=== PATIENT | male | born 1985 | race Caucasian/White ===

== ENCOUNTER 2025-07-25 22:09 | Emergency (ER) | payer MEDICAID, SELFPAY ==
--- OUTSIDE RECORDS SUMMARY | 2025-07-25 22:32 | XMS_ITS | Data Portability ---
Author Organization [facility] Address [address] [place] [address] Assessment Encounter Date Assessment Date Assessment LastModified by Organization Details LastModified Time 07/07/2019 07/07/2019 pt reports all symptoms improved- he feels good on most days. Release to go back to work. Continue meds prn. Follow up should symptoms progress or worsen. Monitor closley for signs of numbness, loss of bowel or bladder control, or Saddle anesthesia. He verbalizes understanding and agrees. [email or web address] Not available 07/07/2019 13:20:58 Plan of Treatment Reminders Order Date Submit Date Provider Last Modified By Organization Details Last Modified Time Details Appointments None recorded. Lab urinalysis , dipstick [address], [address] [place], [address], 2 16:41:29 culture, urine 2021 022 [place] [facility], [address], [facility], [place], [address], 2 18:35:56 rapid flu (A+B) [address], [address] [place], [address], 0 10:19:16 Referral None recorded. Procedures None recorded. Surgeries None recorded. Imaging None recorded. Medication Orders Solu-Medro l (PF) 125 mg/2 mL solution for injection 2023 024 [email or web address] Not available 5 08:11:44 prednisone 20 mg tablet 2023 024 [email or web address] [facility] [place], [address] [place] [address], [address], 5 08:11:41 Solu-Medro l (PF) 125 mg/2 mL solution for injection 2023 024 [email or web address] Not available 5 08:11:44 prednisone 20 mg tablet 2023 024 [email or web address] [facility] [place], [address] [place] [address], [address], 5 08:11:41 Macrobid 100 mg capsule 2021 022 Not available 4 15:40:56 Zithromax Z-Amadou 250 mg tablet 2019 020 [email or web address] [facility] [place], [address] [place] [address], [address], 2 15:27:21 Medrol (Amadou) 4 mg tablets in a dose pack 2019 020 [email or web address] [facility] - [address], [address], 2 15:27:19 Knox 5 mg-325 mg tablet 2018 019 [email or web address] [facility] - [address], [address], 2 15:27:09 Patient TargetsNo targets recorded. Patient Instructions Encounter Date Encounter Id Patient Instructions Last Modified By Organization Details Last Modified Time 07/07/2019 [id number] tailbone injury: care instructions [email or web address] Not available 07/07/2019 13:20:01 back care and preventing injuries: care instructions [email or web address] Not available 07/07/2019 13:20:01 getting back to normal after low back pain: care instructions [email or web address] Not available 07/07/2019 13:20:01 learning about relief for back pain [email or web address] Not available 07/07/2019 13:20:01 09/30/2019 [id number] upper respirator y infection (cold): care instructions Not available 09/30/2019 10:19:16 keep well hydrated, take medication as prescribed, RTC prn Not available 09/30/2019 10:10:56 02/14/2022 [id number] Male Urinary Tract Infection (UTI): Care Instructions Not available 02/14/2022 16:41:29 blood in the urine: care instructions Not available 02/14/2022 16:41:09 keep well hydrated, take medication as prescribed, medications discussed with pt and side effects and adverse effects were discussed, RTC prn Not available 02/14/2022 16:40:31 encouraged pt to RTC in 10 to 14 days to have his urine rechecked Not available 02/14/2022 16:40:51 02/21/2024 [id number] body mass index: care instructions [email or web address] Not available 02/21/2024 15:07:26 learning about healthy weight [email or web address] Not available 02/21/2024 15:07:26 Reason for Referral None Reported. Results Created Date Observation Date Name Description Value Unit Range Abnormal Flag Note LastModifiedBy Organization Detail LastModifiedTime 09/30/1909/30/2019 rapid flu (A+B) Flu negati ve Not Available [facility] [address] [place], [address], 09/30/2019 10:01:44 09/30/1909/30/2019 rapid flu (A+B) Type Both A & B Not Available [facility] [address] [place], [address], 09/30/2019 10:01:44 02/15/20 22 02/14/2022 urina lysis , dipst ick Leukocytes Large Not Available [address] [place], [address], 02/14/2022 15:28:04 02/15/20 22 02/14/2022 urina lysis , dipst ick Nitrite positi ve Not Available [address] [place], [address], 02/14/2022 15:28:04 02/15/20 22 02/14/2022 urina lysis , dipst ick Urobilinogen 4 Not Available [address] [place], [address], 02/14/2022 15:28:04 02/15/20 22 02/14/2022 urina lysis , dipst ick Protein 100 Not Available [address] [place], [address], 02/14/2022 15:28:04 02/15/20 22 02/14/2022 urina lysis , dipst ick pH 6.5 Not Available [address] [place], [address], 02/14/2022 15:28:04 02/15/20 22 02/14/2022 urina lysis , dipst ick Blood Modera te Not Available [address] [place], [address], 02/14/2022 15:28:04 02/15/20 22 02/14/2022 urina lysis , dipst ick Specific Brunswick 1.030 Not Available [address] [place], [address], 02/14/2022 15:28:04 02/15/20 22 02/14/2022 urina lysis , dipst ick Ketone Negati ve Not Available [address] [place], [address], 02/14/2022 15:28:04 02/15/20 22 02/14/2022 urina lysis , dipst ick Bilirubin Negati ve Not Available [address] [place], [address], 02/14/2022 15:28:04 02/15/20 22 02/14/2022 urina lysis , dipst ick Glucose Negati ve Not Available [address] [place], [address], 02/14/2022 15:28:04 02/15/20 22 02/14/2022 urina lysis , dipst ick Appearance Slight ly Cloudy Not Available [address] [place], [address], 02/14/2022 15:28:04 02/15/20 22 02/14/2022 urina lysis , dipst ick Color Dark Yellow Not Available [address] [place], [address], 02/14/2022 15:28:04 02/16/20 22 02/20/2022 URINE CULTU RE, ROUTI NE urine culture, routine Final report abnormal Not Available [facility] ([facility]) [address], [place], [address], 02/20/2022 18:35:56 02/16/20 22 02/20/2022 URINE CULTU RE, ROUTI NE result 1 Escher ichia coli abnormal Cefaz jeanie <=4 ug/mL Cefaz jeanie with an MARTIN <=16 predi cts susce ptibi lity to the oral agent s cefac jeri, cefdi kurtis, cefpo doxim e, cefpr ozil, cefur oxime , cepha lexin , and lorac arbef when used for thera py of uncom plica maximiliano urina ry tract infec tions due to E. coli, Klebs iella pneum oniae , and Prote us mirab ilis. Great er than 100,0 00 colon y formi ng units per mL Not Available [facility] ([facility]) [address] [facility], [place], [address], 02/20/2022 18:35:56 02/16/20 22 02/20/2022 URINE CULTU RE, ROUTI NE antimicrobia l susceptibili ty Commen t S = Susce ptibl e; I = Inter media te; R = Resis tant P = Posit gabriel; N = Negat gabriel MICS are expre ssed in micro grams per mL Antib iotic RSLT# 1 RSLT# 2 RSLT# 3 RSLT# 4 Amoxi cilli n/Cla vulan ic Acid S =4 Ampic illin S =4 Cefep swathi S<=0. 12 Ceftr iaxon e S<=0. 25 Cefur oxime S =4 Cipro floxa derek S<=0. 25 Ertap enem S<=0. 12 Genta micin S<=1 Imipe nem S<=0. 25 Levof loxac in S<=0. 12 Merop enem S<=0. 25 Nitro furan toin S<=16 Piper acill in/Ta zobac alvarez S<=4 Tetra cycli ne S<=1 Tobra mycin S<=1 Trime thopr im/Márquez lfa S<=20 Not Available [facility] ([facility]) [address] [facility], [place], [address], 02/20/2022 18:35:56 Result Notes None recorded. Problems Name Problem SNOMED Code Status Onset Date Resolution Date Notes Provider Name and Address Organization Details Recorded Time Multiple lacerations 285930037 Completed 201606/23/2019 Kristine Núñez RN [address], [place], [address], [facility] 9 15:13:50 Herpes zoster 1991862 Active 2018 Kristine perdue [facility] 9 14:44:12 Traumatic injury 306815720 Active 2018 Kristine Núñez RN [address], [place], [address], [facility] 9 15:13:56 Low back pain 717775341 Active 2018 [facility] Rubio [facility] 9 13:05:22 Problem Notes None recorded. Procedures Surgical History Date Name Laterality Status Provider Name and Address Organization Details Recorded Time 09/30/19 Diastolic B/P 80-89 mm Hg completed [facility] 09/30/2019 09:57:59 09/30/19 Systolic B/P 130-139 mm Hg completed [facility] 09/30/2019 09:57:57 06/08/20 19 Medication Reconcilliation completed Dana Gary [facility] 06/08/2019 14:36:56 06/02/20 19 Medication Reconcilliation completed Kristine Walters [facility] 06/02/2019 14:36:37 Hernia Repair completed Dana Gary [facility] 12/28/2016 15:43:32 Imaging Results None recorded. Procedure Notes None recorded. Medical Equipment None Reported. Allergies No known drug allergies Medications Name Sig Start Date Stop Date Status Note LastModified by Organization Details LastModified Time cyclobenz aprine 10 mg tablet Take 1 tablet 3 times a day by oral route as needed for 30 days. 02/14 completed Not Available Not Available Not Available Zyrtec-D 5 mg-120 mg tablet,ex tended release take 1 tablet by oral route 2 times per day for 7 days 09/13 completed Zyrtec-D 5-120 mg oral tablet extended release 12 hr;Presc ribe Status: Prescrib ed on: 09/06/20 2:31PM;U ser: markesbe ryh;Est. Completi on: 09/13/20 15;Pharm acyVerif ied: 09/06/20 15 2:31PM Not Available Not Available Not Available ibuprofen 800 mg tablet Take 1 tablet 3 times a day by oral route for 15 days. 12/15 completed Not Available Not Available Not Available hydrocodo ne 5 mg-acetam inophen 325 mg tablet Take 1 tablet 3 times a day by oral route as needed. 02/14 completed Not Available Not Available Not Available Keflex 500 mg capsule take 1 capsule (500 mg) by oral route every 12 hours for 10 days 09/16 completed Keflex 500 mg oral capsule; Prescrib e Status: Prescrib ed on: 09/06/20 2:31PM;U ser: char ramos;Est. Completi on: 09/16/19 16;Pharm acyVerif ied: 09/06/20 2:31PM Not Available Not Available Not Available Medrol (Amadou) 4 mg tablets in a dose pack take as directed for 5 days 02/14 completed Not Available Not Available Not Available prednison e 20 mg tablet TAKE 3 TABLETS ORALLY ONCE DAILY FOR 5 DAYS 12/30 completed Not Available Not Available Not Available Zithromax Z-Amadou 250 mg tablet take 2 tablets (500 mg) by oral route once daily for 1 day then 1 tablet (250 mg) by oral route once daily for 4 days 02/14 completed Not Available Not Available Not Available promethaz ine 6.25 mg-codein e 10 mg/5 mL syrup take 5 millilit ers by oral route every 6 hours as needed, not to exceed 30 mL in 24 hours for 7 days 09/06 completed prometha zine-cod eine 6.25-10 mg/5 mL oral syrup;Re corded Status: Recorded on: 01/15/20 14 11:46AM; Disconti nued Status: Disconti nued on: 09/06/20 15 1:35PM;U ser: grayn;Es t. Completi on: 01/22/20 14 Not Available Not Available Not Available acyclovir 800 mg tablet Take 1 tablet 5 times a day by oral route for 10 days. 06/08 completed Not Available Not Available Not Available Tessalon Perles 100 mg capsule take 1 capsule (100 mg) by oral route 3 times per day prn 10/30/ 2014 12/22 /2015 completed Tessalon Perles 100 mg oral capsule; Prescrib e Status: Prescrib ed on: 07/15/20 14 3:13PM;D iscontin ued Status: Disconti nued on: 09/06/20 15 1:35PM;U ser: gored;Es t. Completi on: 07/25/20 14;Indic ation: Cough - (16.6982 00);Phar macyVeri fied: 07/15/20 14 3:13PM Not Available Not Available Not Available methocarb foreign 750 mg tablet Take 1 tablet 3 times a day by oral route as needed for 30 days. 06/23 completed Not Available Not Available Not Available Cipro 500 mg tablet take 1 tablet (500 mg) by oral route 2 times per day for 10 days 09/06 completed Cipro 500 mg oral tablet;P rescribe Status: Prescrib ed on: 07/15/20 14 3:13PM;D iscontin ued Status: Disconti nued on: 09/06/20 15 1:35PM;U ser: gored;Es t. Completi on: 07/25/20 14;Pharm acyVerif ied: 07/15/20 14 3:13PM Not Available Not Available Not Available Ventolin HFA 90 mcg/actua tion aerosol inhaler INHALE 2 PUFFS ORALLY EVERY 6 HOURS NEEDED active Not Available Not Available No t Available cyclobenz aprine 5 mg tablet 12/15 completed Not Available Not Available Not Available nitrofura ntoin monohydra te/macroc rystals 100 mg capsule Take 1 capsule every 12 hours by oral route for 10 days. 12/15 completed Not Available Not Available Not Available Flonase spray bid 09/06 completed flonase; Recorded Status: Recorded on: 09/06/20 15 1:53PM;D iscontin ued Status: Disconti nued on: 09/06/20 15 2:27PM;U ser: markesbe ryh;Est. Completi on: 02/03/20 16;Indic ation: - (-5) Not Available Not Available Not Available Keflex 1 tid 09/06 completed keflex 500 mg;Recor ded Status: Recorded on: 09/06/20 15 1:53PM;D iscontin ued Status: Disconti nued on: 09/06/20 15 2:27PM;U ser: char ramos;Est. Completi on: 09/13/20 15;Indic ation: - (-5) Not Available Not Available Not Available Zyrtec D 1 bid 09/06 completed zyrte d;Record ed Status: Recorded on: 09/06/20 15 1:53PM;D iscontin ued Status: Disconti nued on: 09/06/20 15 2:27PM;U ser: char ramos;Est. Completi on: 09/13/20 15;Indic ation: - (-5) Not Available Not Available Not Available Solu-Medr ol (PF) 125 mg/2 mL solution for injection Take 125 mg by injectio n route. 12/30 completed Not Available Not Available Not Available Flonase Allergy Relief 50 mcg/actua tion nasal spray,bobby pension inhale 1 puff by nasal route 2 times a day for 7 days 09/13 completed Flonase Allergy Relief 50 mcg/actu ation nasal spray,márquez spension ;Prescri be Status: Prescrib ed on: 09/06/20 15 2:31PM;U ser: char ramos;Est. Completi on: 09/13/20 15;Pharm acyVerif ied: 09/06/20 15 2:31PM Not Available Not Available Not Available Vitals Date Recorded Body height Body mass index (BMI) Body weight Body temperature Heart rate Oxygen saturation Oxygen saturation in Arterial blood by Pulse oximetry Respiratory rate Pain severity - 0-10 verbal numeric rating [Score] - Reported Systolic And Diastolic Provider Name and Address Organization Details Last Updated DateTime 0 172.72 cm 42.4 kg/m2 631026. 27 g 98.3 [degF] 68 /min 97 % 97 % 20 /min 0 130/80 mm[Hg] [facility] 0 09:57:25 Date Recorded Body height Body mass index (BMI) Body weight Heart rate Oxygen saturation Oxygen saturation in Arterial blood by Pulse oximetry Respiratory rate Pain severity - 0-10 verbal numeric rating [Score] - Reported Systolic And Diastolic Provider Name and Address Organization Details Last Updated DateTime 4 172.72 cm 43.8 kg/m2 366826. 6 g 88 /min 97 % 97 % 18 /min 4 134/80 mm[Hg] Padminilance [place] - [facility] 4 15:50:56 Date Recorded Body weight Heart rate Oxygen saturation Oxygen saturation in Arterial blood by Pulse oximetry Respiratory rate Systolic And Diastolic Provider Name and Address Organization Details Last Updated DateTime 2 259128. 2 g 83 /min 98 % 98 % 18 /min 140/90 mm[Hg] Kristine Luis [place] - [facility] 2 15:26:50 Date Recorded Body height Body mass index (BMI) Body weight Heart rate Oxygen saturation Oxygen saturation in Arterial blood by Pulse oximetry Respiratory rate Pain severity - 0-10 verbal numeric rating [Score] - Reported Systolic And Diastolic Provider Name and Address Organization Details Last Updated DateTime 4 172.72 cm 43.8 kg/m2 941396. 6 g 72 /min 97 % 97 % 18 /min 0 124/78 mm[Hg] Padmini [place] - [facility] 4 14:57:41 Date Recorded Body height Body mass index (BMI) Body weight Heart rate Oxygen saturation Oxygen saturation in Arterial blood by Pulse oximetry Respiratory rate Systolic And Diastolic Provider Name and Address Organization Details Last Updated DateTime 9 172.72 cm 41.2 kg/m2 759671. 53 g 66 /min 95 % 95 % 18 /min 136/88 mm[Hg] Kristine Walters [place] - [facility] 9 13:08:33 Social History Question Answer Notes LastModified by Organizat ion Details LastModified Time Tobacco Smoking Status Never Smoker Dana perdue [place] - [facility] 12/28/2016 15:43:40 Do You Have An Advance Directive? No Information not available 12/16/2023 Are You Blind Or Do You Have Difficulty Seeing? No [email or web address] Information not available 09/30/2019 What Is Your Level Of Caffeine Consumption? Occasional [email or web address] Information not available 09/30/2019 How Much Tobacco Do You Chew? None [email or web address] Information not available 09/30/2019 Are You Deaf Or Do You Have Serious Difficulty Hearing? No [email or web address] Information not available 09/30/2019 What Type Of Diet Are You Following? REGULAR Information not available 09/30/2019 Which Illicit Or Recreational Drugs Have You Used? None [email or web address] Information not available 09/30/2019 How Many Days Of Moderate To Strenuous Exercise, Like A Brisk Walk, Did You Do In The Last 7 Days? 1 [email or web address] Information not available 09/30/2019 On Those Days That You Engage In Moderate To Strenuous Exercise, How Many Minutes, On Average, Do You Exercise? 1 [email or web address] Information not available 09/30/2019 Have There Been Any Changes To Your Family Or Social Situation? No Information no t available 12/16/2023 How Hard Is It For You To Pay For The Very Basics Like Food, Housing, Medical Care, And Heating? [id number] [email or web address] Information not available 09/30/2019 What Is The Fluoride Status Of Your Home? Fluoridated Information not available 12/16/2023 Hard Of Hearing Or Deaf In One Or Both Ears? No [email or web address] Information not available 09/30/2019 Legally Blind In One Or Both Eyes? No Information no t available 09/30/2019 Live Alone Or With Others? With Others Information not available 06/02/2019 Do You Have A Medical Power Of Director Workforce Management? No Information not available 12/16/2023 What Was The Date Of Your Most Recent Tobacco Screening? 12/16/2023 Information not available 12/16/2023 What Is Your Relationship Status? Information not available 12/16/2023 Seat Belts Used Routinely Yes [email or web address] Information not available 09/30/2019 Are You Sexually Active? Yes Information not available 12/16/2023 Smoke Alarm In Home Yes [email or web address] Information not available 09/30/2019 Do You Have Smoke And Carbon Monoxide Detectors In Your Home? Yes Information not available 12/16/2023 Are You Passively Exposed To Smoke? No [email or web address] Information no t available 09/30/2019 General Stress Level Low [email or web address] Information not available 09/30/2019 Do You Use Sunscreen Routinely? Yes [email or web address] Information not available 09/30/2019 Has Tobacco Cessation Counseling Been Provided? No Information not available 12/16/2023 On What Date Was Tobacco Cessation Counseling Provided? 02/21/2024 Information not available 02/21/2024 Do You Have Difficulty Walking Or Climbing Stairs? No Information not available 09/30/2019 Sex: Male Functional Status Question Answer Note LastModified by Organizat ion Details LastModified Time Do you use any illicit or recreational drugs? No Information not available 12/16/2023 Do you or have you ever used any other forms of tobacco or nicotine? No Information not available 12/16/2023 What is your level of alcohol consumption? None Information not available 09/30/2019 Do you or have you ever used smokeless tobacco? Never used smokeless tobacco [email or web address] Information not available 09/30/2019 Are you currently employed? No Information not available 12/16/2023 Do you have transportation difficulties? No Information not available 12/16/2023 Are you able to walk independently without assistance or assistive devices? [email or web address] Information not available 09/30/2019 Do you have difficulty doing errands alone? No [email or web address] Information not available 09/30/2019 Are you able to care for yourself independently? Yes Information not available 06/02/2019 Do you have difficulty dressing, bathing, grooming, or toileting? No [email or web address] Information not available 09/30/2019 Do you or have you ever used e-cigarettes or vape? Never used electronic cigarettes [email or web address] Information not available 09/30/2019 What is your exercise level? None [email or web address] Information not available 09/30/2019 Mental Status Question Answer Note LastModified by Organizat ion Details LastModified Time Do you feel stressed (tense, restless, nervous, or anxious, or unable to sleep at night)? [id number] [email or web address] Information not available 09/30/2019 Do you have difficulty concentrating, remembering or making decisions? No [email or web address] Information no t available 09/30/2019 Family History Relationship Description Onset Age of this Age Resolved Age Notes LastModified by Organization Details LastModified Time Maternal Grandmother Neoplasm of lung [email or web address] Not available 12/28 15:43:04 Paternal Aunt Diabetes mellitus [email or web address] Not available 12/28 15:43:19 Medical History Condition Response Pancreatitis N Coronary Artery Disease N Other N Gout N Atrial Fibrillation N congenital heart disease N Blood Diseases N Kidney Stones N Hyperthyroidism N Rheumatoid arthritis N Blood Transfusion N Erectile Dysfunction N amputation N Colonoscopy N Skin Lesions N COPD N Depression N Pneumonia N Incontinence N Murmur N Edema N Alzheimer's Disease N Migraine Headaches N Tobacco Abuse N Anxiety Disorder N Muscle, Joint, or Bone Problems N Hemorrhoids N Obesity N Vision or Eye Problems N Restless Leg Syndrome N Arthritis N Infertility N Polyps N Carpal Tunnel N Mental Disorder N Acid Reflux (GERD) N Cancer N Stroke N Varicosities N Tendonitis N Crohn's Disease N Hypercholesterolemia N Skin Cancer N Fibromyalgia N Headaches N Anal Fissure N Irritable Bowel Syndrome N Kidney Disease N Heart Problems N Ear or Hearing Problems N Hospitalizations N Gallstones N Kidney or Bladder Problems N Goiter N Acne N Skin Problems N Eating Disorder N Esquivel's Esophagus N Hypertriglyceridemia N MRSA exposure N Constipation N Embolism N Vitamin B12 Deficiency N Deviated Septum N Tuberculosis N AIDS/HIV N Myocardial Infarction N Asthma N Mitral Valve Disorders N Vertigo N Hepatitis N Thyroid Cancer N Neuropathy N Pulmonary Embolism N History of DVT N Herniated Disc N Chronic Ear Infections N Chicken Pox N Autism Spectrum Disorder (ASD) N Von Willebrands Disease N Thrombophilias N Breast Cancer N Hernia N Plantar Fasciitis N Hospital Admission Other Than N Lung Disease N Hypothyroidism N Defects or Inherited Disease N Developmental or Behavioral Disorders N Breast Problem N Difficulty Swallowing N Ovarian Cyst N Anesthesia Complications N Testosterone Deficiency N Meniere's disease N Head Injury/Concussion N Interstitial Cystitis N Congenital Anomalies N Hypoglycemia N Blood clot N Vitamin D Deficiency N Cellulitis N Endometriosis N Fracture N Bladder or Kidney Problems N Liver Disease N Panic Disorder N Schizophrenia N Concussion N Spina Bifida N Allergies/Hayfever N Osteoarthritis N Parkinson's Disease N Disc Protrusion N STI N Esophagitis N Angina N Thyroid Problems N GI Problems N ADD/ADHD N Anemia N Multiple Sclerosis N Abnormal PAP N Lumbago N Mental Illness N Psychiatric Illness N Diabetes N Ovarian Cancer N Bedwetting N Degenerative Disc Disease N Seizures/Epilepsy N Congestive Heart Failure (CHF) N Hyperlipidemia N Syncope N Insomnia N Eczema N Abuse/Domestic Violence N Attention Deficient Disorder N Diverticulitis N Dementia N Ulcerative colitis N Cerebrovascular Disease N Depression N Guillain-[place] N Sleep Apnea N Aneurysm N Bronchitis N Heart Disease N Suicidal Ideation N Pre-Eclampsia N Hypertension N Osteoporosis N Immunizations Vaccine Type Date Status Note Provider Nam e and Address Organization Details Recorded Time Tdap 12/14/2016 completed Padmini Lopezlee [facility] [place], [facility] - [facility] 12/16/2023 15:50:30 Past Encounters Encounter ID Performer Location Encounter Start Date Encounter Closed Date Diagnosis/Indication Diagnosis SNOMED-CT Code Diagnosis ICD10 Code Diagnosis IMO Codes Diagnosis Note [id number] Flash Tomas MD [address] [place] [address] 12/28/2016 15:04:14 12/28/2016 16:08:42 Multiple lacerations [id number] T14.8 [id number] Hellen Kilgore [address] [place] [address] 06/02/2019 14:31:56 06/02/2019 15:09:14 Body mass index 40+ - severely obese [id number] Z68.41 Herpes zoster [id number] B0 2.9 [facility] in [facility] [id number] Z76.89 [id number] Hellen Kilgore [address] [address] 06/08/2019 13:56:00 06/08/2019 15:14:27 Traumatic injury [id number] T14.90XD Fracture of coccyx 76981 1005 S32.2XXS Spasm of back muscles 20 9534255 M62.718 [id number] Hellen Kilgore [address] [address] 06/23/2019 14:28:27 06/23/2019 15:46:46 Low back pain [id number] M54.5 Traumatic injury [id number] 04 T14.90XD [id number] Hellen Kilgore [address] [address] 07/07/2019 13:00:12 07/07/2019 13:24:48 Traumatic injury [id number] T14.90XD Low back pain 284947427 M54.5 Fracture of coccyx 30446 1005 S32.2XXS [id number] Patti Sousa [address] [address] 09/30/2019 09:46:42 09/30/2019 10:12:54 Upper respiratory infection [id number] J06.9 [id number] Patti Sousa [address] [address] 02/14/2022 15:10:03 02/14/2022 15:33:01 Urinary tract infectious disease [id number] N39.0 Microscopic hematuria 19 2688193 R31.29 [id number] Alber Glasgow MD [address] [place] [address] 12/16/2023 15:27:57 12/16/2023 16:13:49 Nasal congestion 15259976 R09.81 [id number] Alber lGasgow MD [address] [place] [address] 02/21/2024 14:34:19 02/21/2024 15:39:41 Nasal congestion 88039755 R09.81 Body mass index 40+ - severely obese 711853903 Z68.41 Morbid obesity 913826513 E66.01 Health Concerns Section Related Observation LastModified by Organization Detai ls LastModified Time None Recorded Concern Status LastModified by Organization Details LastModified Time None Recorded Advance Directives Directive N: Payers Insurance Date Sequence Insurance Name Policy Number Policy Bustamante Covered Member ID Bustamante Member ID Guarantor Name 06/23/2019 1 *SELF PAY* Da cheri Craven 12/27/2024 [place] - [facility] (MEDICAID) Jeremy Craven [id number] Jeremy Craven 02/21/2024 1 [employer] [place] (MEDICAID HMO[place] Jeremy Craven [id number] Jeremy Craven 12/27/2024 1 [employer] [place] ([place] Jeremy Craven [id number] Jeremy Craven Notes Date Note Type Note Provider Name and Address Organization Details Recorded Time 07/07/2019 text/html ROS as noted in the HPI Pt presents for f/u on back pain today after a fall through a roof. States the pain is getting better and he is only taking meds PRN. He would like to return to work at this time. Pt denies any numbness, tingling, SA or bowel/bladder incontinence. Bruising has resolved. no issues with ambulation. Hellen perdue, AURELIO - [facility] 07/07/2019 13:22:31 09/30/2019 text/html Upper Respirator y SymptomsReported by PatientUpper Respiratory SymptomsFor quality, patient reportsproductive coughandcongested. For associated symptoms, patient reportsyellow-green, thick sputum,sweats, andfever. For location, patient reportsheadandchest. For severity, patient reportsno pain. For duration, patient reportscannot identify. For onset/timing, patient reportsgradual. For context, patient reportsno sick contacts,no foreign travel, andnon-smoker.ROS as noted in the HPI AURELIO Macdonald - [facility] 09/30/2019 10:12:07 02/14/2022 text/html ROS as noted in the HPI pt c/o flank pain on left side, severe burning and pain when urinatingno fever no chills no N,V or D AURELIO Macdonald - [facility] 02/14/2022 16:41:23 12/16/2023 text/html ROS as noted in the HPI Patient presents today with complaints of cough, shortness of breath, headaches x 3 days. 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 Patient reports that cough is occasionally productive of [place]/yellow sputum. Patient reports occasionally shortness of breath with exertion.Patient reports history of high blood pressure. BP this date 134/80. Patient does not check BP at home. Patient denies any chest pain, tightness, palpitaitons, syncope, neuro changes.Patient denies any F/C, N/V/D. Alber Glasgow MD [address], [place], [address], [place] - [facility] 12/16/2023 17:26:44 02/21/2024 text/html ROS as noted in the HPI Patient presents today with complaints of cough, runny nose, sneezing, and headaches x 4 days. Patient reports that symptoms began after mowing the yard. Patient reports that cough is occasionally productive of [place]/yellow sputum.Patient denies any chest pain, tightness, palpitaitons, syncope, neuro changes.Patient denies any F/C, N/V/D, shortness of breath, ear pain, sore throat. Alber Glasgow MD [address], [place], [address], [place] - [facility] 02/21/2024 17:19:05
[2025-07-25 22:39] VITALS: BP 132/78; PULSE 71; RESP 17; TEMP 37.1; O2SAT 98; BMI 39.0
[2025-07-25 22:44] VITALS: BP 137/78; PULSE 74; RESP 18; TEMP 37.1; O2SAT 98
[2025-07-25] MEDS: DEXAMETHASONE 4MG/ML 1ML VIAL 10 MG IM (23:07)
[2025-07-25] MEDS: METHOCARBAMOL 500MG TABLET 500 MG PO (23:07)
[2025-07-25] MEDS: KETOROLAC 30MG/ML VIAL 30 MG IM (23:07)
[2025-07-25] MEDS: LIDOCAINE 5% TRANSDERMAL PATCH 1 EACH TD (23:07)
[2025-07-25 23:29] VITALS: BP 134/78; PULSE 74; RESP 18; TEMP 37.1; O2SAT 98
--- NOTE | 2025-07-25 23:30 | HMH.EDGENADL ---
Discharge Plan Disposition Patient Disposition: Home, Self-Care Condition: Good Prescriptions Prescriptions: New ketorolac 10 mg tablet 10 mg PO Q8H PRN (Reason: pain) Qty: 12 0RF Rx Instructions: maximum total duration of 5 days from all oral, intranasal, or parenteral formulations methocarbamol 750 mg tablet 750 mg PO Q8H PRN (Reason: back pain) Qty: 20 0RF No Action prednisone 20 MG tablet 20 mg PO BID Qty: 10 0RF acyclovir 800 MG tablet 800 mg PO 5XDAY Qty: 40 0RF Referrals Follow up/Referrals: Hellen Kilgore MD [Primary Care Provider, Medical] - See instructions Activity Restrictions/Add. Instructions Additional Instructions/Restrictions: You were evaluated in the emergency department today. Please molded goods spot picker your prescriptions and take them as needed for pain. You may also take Tylenol and molded goods spot picker [id number] lidocaine patches to help as well. Please follow-up closely with a primary care provider. Return to the emergency department for new or worsening symptoms. Clinical Impressions Clinical Impression: Acute exacerbation of chronic low back pain Stand Alone Forms Stand Alone Forms: Work/School Release Instructions Patient Instructions: DI for Low Back Pain, DI for Back Pain With Sciatica Print Language Print Language: Macedonian Discharge ED Provider: Shazia Lloyd General Adult HPI General Chief complaint: Back Pain/Injury Stated complaint: back and leg pain Time Seen by Provider: 07/25/25 22:47 Mode of Arrival: Ambulatory Source of Information: Patient Description of Symptoms (Recalled from ER Triage Doc. by RN): Patient states he has had back pain for the past 4 days. States it gets worse, with movement. states the pain radiates across his lower back to both legs. Rates pain 8/10. States the pain is a shock type feeling. Reports a history of back pain, however without medication. History of Present Illness HPI narrative: This patient is a 40-year-old male with a history of chronic back pain related to an injury 6 years ago presenting to the emergency department for evaluation with concern for flareup of low back pain. 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 He states that he has shooting pains down both of his legs whenever he tries to get up and get moving. He denies any numbness or tingling, saddle anesthesia, urinary incontinence, urinary retention, bowel incontinence, Fevers or infectious symptoms,or other concerns. Related Data Previous Rx's ?Medication ?Instructions ?Recorded acyclovir 800 mg tablet 800 mg PO 5XDAY #40 tabs 05/29/19 prednisone 20 mg tablet 20 mg PO BID #10 tabs 05/29/19 ketorolac 10 mg tablet 10 mg PO Q8H PRN pain #12 tabs 07/25/25 methocarbamol 750 mg tablet 750 mg PO Q8H PRN back pain #20 07/25/25 tabs Allergies Allergy/AdvReac Type Severity Reaction Status Date / Time No Known Allergies Allergy Verified 05/29/19 03:29 [facility] Disclaimer: The information contained in this section may have been updated after the patient was seen, as this information can be updated by other users. Social History Smoking Status: Never smoker alcohol intake: never current occupational status: employed Travel in the last 8 weeks?: None Have you lived/traveled outside [place] in past 30 days?: No Contact w/someone who lives/traveled outside US past 30 days?: No Exposure to someone with infectious disease in past 14 days?: No Do you have a fever (greater than 100.4 F or 38 C)?: No Have you tested positive for COVID-19?: No Exposed to someone with COVID-19 in past 14 days?: No Do you have a sore throat?: No Do you have a cough?: No Do you have any weakness?: No Do you have any diarrhea?: No Are you experiencing any unusual bleeding?: No Do you have any muscle aches/pain?: No Do you have any abdominal pain?: No Are you experiencing loss of taste or smell?: No Other Medical History Have you received the Flu Vaccine for this season: No Have you received the Pneumonia Vaccine: No ROS Obtained: Yes All systems reviewed & no additional complaints except as documented Physical Exam General General appearance: alert and in no apparent distress Head Head exam: atraumatic and normocephalic Eye Eye exam: Present normal appearance, PERRL and EOMI ENT ENT exam: Present normal exam, normal oropharynx, mucous membranes moist and normal external ear exam Neck Neck exam: Present normal inspection, full ROM and trachea midline; Absent tenderness Chest Chest inspection: Present normal inspection and symmetric chest wall rise; Absent tenderness Respiratory Respiratory exam: Present normal lung sounds bilaterally; Absent respiratory distress, wheezes, stridor or accessory muscle use Cardiovascular Cardiovascular exam: Present regular rate and normal rhythm Abdominal Exam Abdominal exam: Present soft; Absent distention, tenderness or guarding Extremities Exam Extremities exam: Present normal inspection, full ROM and normal capillary refill; Absent tenderness or edema Back Exam Back exam: Present tenderness (Bilateral paraspinal tenderness to palpation of the lower lumbar spine with positive straight leg raise on both sides) Neurological Exam Neurological exam: Present alert, oriented X3, CN II-XII intact and normal gait; Absent motor sensory deficit Psychiatric Psychiatric exam: Present normal affect and normal mood Skin Skin exam: Present warm and dry Medical Decision Making Medical Records Medical records reviewed: Yes I reviewed the patient's medical records. Screening: Per USPSTF and CDC recommendations, given the prevalence of disease in our region, it is our hospital?s policy to screen for HIV and viral Hepatitis for all patients aged 18 and over and those with ongoing risk factors. [place] Inquiry Pt receiving controlled substance: No Vital Signs: 07/25/25 22:39 07/25/25 22:44 Temperature 98.8 F 98.8 F Temperature Source Oral Pulse Rate 74 Pulse Rate [Right] 71 Respiratory Rate 17 18 Blood Pressure 137/78 Blood Pressure [Right Arm] 132/78 Blood Pressure Mean [Right Arm] 96 02 Sat by Pulse Oximetry 98 98 Oxygen Delivery Method Room Air Room Air Lab Data Lab results reviewed: Yes I reviewed the patient's lab results. Orders (Tests/Meds): ED MEDICATIONS Discontinued Medications Generic Name Dose Route Start Last Admin Trade Name Femi PRN Reason Stop Dose Admin Dexamethasone Sodium Phosphate 10 mg 07/25/25 22:55 07/25/25 23:07 Dexamethasone 4mg/Ml 1ml Vial IM 07/25/25 22:56 10 mg ONCE ONE Administration Ketorolac Tromethamine 30 mg 07/25/25 22:55 07/25/25 23:07 Ketorolac 30mg/Ml Vial IM 07/25/25 22:56 30 mg ONCE ONE Administration Lidocaine 1 each 07/25/25 22:55 07/25/25 23:07 Lidocaine 5% Transdermal Patch TD 07/25/25 22:56 1 each ONCE ONE Administration Methocarbamol 500 mg 07/25/25 22:56 07/25/25 23:07 Methocarbamol 500mg Tablet PO 07/25/25 22:57 500 mg ONCE ONE Administration Medical Decision Narrative: In summary, this patient is a 40-year-old male presenting to the Emergency Department for evaluation of acute flareup of chronic low back pain with shooting pains down both of his leg. Differential diagnoses considered include but are not limited to disc herniation, low back pain with bilateral sciatica, fracture, cauda equina syndrome, spinal cord compression. Ruling out the most morbid conditions drove assessment. It should be noted patient's history includes chronic low back pain which is not at goal therapy. This complicates all aspects of care by increasing patient's risk for morbidity. On exam, the patient is lying in bed in no distress. He has bilateral paraspinal tenderness to palpation with positive straight leg raise on both sides, but he is neurologically intact in his lower extremities with no saddle anesthesia, incontinence, retention. I am not concerned for spinal cord compression or cauda equina syndrome. He has not had any recent falls or injuries, so I do not feel that CT or x-ray would be helpful, as I feel he is unlikely to have acute fracture. I did advise that he follow-up very closely with PCP for MRI if he continues to have pain. He is agreeable to try treatment of flareup of pain at this time including Tylenol, Toradol, dexamethasone, Robaxin, Lidoderm patch. On reassessment, he had good improvement, so I feel he is appropriate for discharge home with prescription for Robaxin and Toradol as well as instruction for supportive care and close follow-up. Strict return precautions were given Critical Care Critical Care Time Critical Care Time: No
== END 2025-07-25 23:44 | disposition home or self-care (01) ==
PROVIDERS: Emergency Provider Emergency Medicine; PCP Nurse Practitioner
DX: M54.50 Low back pain, unspecified (principal); G89.29 Other chronic pain
CPT/HCPCS: 96372; 99283; 99285; J1100; J1885

== ENCOUNTER 2025-08-06 18:08 | Outpatient (CLI) | payer MEDICAID, SELFPAY ==
[2025-08-06 20:22] LABS: Hematocrit 46.8 % (42.0-52.0); Hemoglobin 14.7 g/dL (14.1-18.0); Immature Granulocytes % 0.3 %; Mean Corpuscular HGB Conc 31.4 g/dL (31.8-35.4); Mean Corpuscular Hemoglobin 27.4 pg (27.0-31.2); Mean Corpuscular Volume 87.3 fl (80-94); Nucleated Red Blood Cells % 0 %; Platelet Count 343 K/mm3 (142-424); Red Blood Count 5.36 M/mm3 (4.60-6.20); Red Cell Distribution Width-SD 43.8 fL; White Blood Count 10.4 K/mm3 (4.8-10.8)
[2025-08-06 20:52] LABS: Alanine Aminotransferase 31 U/L (12-78); Albumin Level 4.4 g/dl (3.5-5.0); Albumin/Globulin Ratio 1.5 (1.1-1.8); Alkaline Phosphatase 102 U/L (38-126); Anion Gap 10.9 mEq/L (5-15); Aspartate Amino Transferase 23 U/L (17-59); Bilirubin,Total 0.5 mg/dl (0.2-1.3); Blood Urea Nitrogen 12 mg/dl (9-20); Calcium 9.3 mg/dl (8.4-10.2); Carbon Dioxide 26 mmol/L (22.0-30.0); Chloride 105 mmol/L (98-107); Cholesterol 148 mg/dl (140-200); Creatinine,Serum 1.00 mg/dl (0.66-1.25); Estimated Glomerular Filt Rate 82 ml/min (>60); GFR (African American) 99 ML/MIN (>60); Globulin 3.0 g/dL (1.3-3.2); Glucose 94 mg/dl (74-100); HDL Cholesterol 33 mg/dl (40-60); Potassium 4.9 mmoL/L (3.5-5.1); Sodium 137 mmol/L (136-145); Total Protein,Serum 7.4 g/dl (6.3-8.2); Triglycerides 86 mg/dl (30-150)
[2025-08-06 21:23] LABS: Thyroid Stimulating Hormone 2.33 uIU/mL (0.465-4.68)
[2025-08-06 21:40] LABS: Hepatitis C Ab Qual. W/ RFX NEGATIVE (Negative)
--- OUTSIDE RECORDS SUMMARY | 2025-08-09 11:12 | XMS_ITS | Data Portability ---
Author Organization [facility] Address [address] [place] [address] Assessment Encounter Date Assessment Date Assessment LastModified by Organization Details LastModified Time 07/07/2019 07/07/2019 pt reports all symptoms improved- he feels good on most days. Release to go back to work. Continue meds prn. Follow up should symptoms progress or worsen. Monitor closley for signs of numbness, loss of bowel or bladder control, or Saddle anesthesia. He verbalizes understanding and agrees. [email or web address] Not available 07/07/2019 13:20:58 Plan of Treatment Reminders Order Date Submit Date Provider Last Modified By Organization Details Last Modified Time Details Appointments None recorded. Lab urinalysis , dipstick [address], [address] [place], [address], 2 16:41:29 culture, urine 2021 022 [place] [facility], [address], [facility], [place], [address], 2 18:35:56 rapid flu (A+B) [address], [address] [place], [address], 0 10:19:16 Referral None recorded. Procedures None recorded. Surgeries None recorded. Imaging None recorded. Medication Orders Solu-Medro l (PF) 125 mg/2 mL solution for injection 2023 024 [email or web address] Not available 5 08:11:44 prednisone 20 mg tablet 2023 024 [email or web address] [facility], [address] [place] [address], [address], 5 08:11:41 Solu-Medro l (PF) 125 mg/2 mL solution for injection 2023 024 [email or web address] Not available 5 08:11:44 prednisone 20 mg tablet 2023 024 [email or web address] [facility], [address] [place] [address], [address], 5 08:11:41 Macrobid 100 mg capsule 2021 022 Not available 4 15:40:56 Zithromax Z-Amadou 250 mg tablet 2019 020 [email or web address] [facility], [address] [place] [address], [address], 2 15:27:21 Medrol (Amadou) 4 mg tablets in a dose pack 2019 020 [email or web address] [facility] - [address], [address], 2 15:27:19 [place] 5 mg-325 mg tablet 2018 019 [email or web address] [facility] - [address], [address], 2 15:27:09 Patient TargetsNo targets recorded. Patient Instructions Encounter Date Encounter Id Patient Instructions Last Modified By Organization Details Last Modified Time 07/07/2019 [id number] tailbone injury: care instructions [email or web address] Not available 07/07/2019 13:20:01 back care and preventing injuries: care instructions [email or web address] Not available 07/07/2019 13:20:01 getting back to normal after low back pain: care instructions [email or web address] Not available 07/07/2019 13:20:01 learning about relief for back pain [email or web address] Not available 07/07/2019 13:20:01 09/30/2019 [id number] upper respirator y infection (cold): care instructions Not available 09/30/2019 10:19:16 keep well hydrated, take medication as prescribed, RTC prn Not available 09/30/2019 10:10:56 02/14/2022 [id number] Male Urinary Tract Infection (UTI): Care Instructions [...] urine rechecked Not available 02/14/2022 16:40:51 02/21/2024 [id number] body mass index: care instructions [email or web address] Not available 02/21/2024 15:07:26 learning about healthy weight Not available 02/21/2024 15:07:26 Reason for Referral None Reported. Results Created Date Observation Date Name Description Value Unit Range Abnormal Flag Note LastModifiedBy Organization Detail LastModifiedTime 09/30/1909/30/2019 rapid flu (A+B) Flu negati ve Not Available [facility] [address] [place], [address], 09/30/2019 10:01:44 09/30/1909/30/2019 rapid flu (A+B) Type Both A & B Not Available [facility] [address] [place], [address], 09/30/2019 10:01:44 02/15/20 22 02/14/2022 urina lysis , dipst ick Leukocytes Large Not Available [address] [place], [address], 02/14/2022 15:28:04 02/15/20 22 02/14/2022 urina lysis , dipst ick Nitrite positi ve Not Available [address] [place], [address], 02/14/2022 15:28:04 02/15/20 22 02/14/2022 urina lysis , dipst ick Urobilinogen 4 Not Available [address] [place], [address], 02/14/2022 15:28:04 02/15/20 22 02/14/2022 urina lysis , dipst ick Protein 100 Not Available [address] [place], [address], 02/14/2022 15:28:04 02/15/20 22 02/14/2022 urina lysis , dipst ick pH 6.5 Not Available [address] [place], [address], 02/14/2022 15:28:04 02/15/20 22 02/14/2022 urina lysis , dipst ick Blood Modera te Not Available [address] [place], [address], 02/14/2022 15:28:04 02/15/20 22 02/14/2022 urina lysis , dipst ick Specific [place] 1.030 Not Available [address] [place], [address], 02/14/2022 15:28:04 02/15/20 22 02/14/2022 urina lysis , dipst ick Ketone Negati ve Not Available [address] [place], [address], 02/14/2022 15:28:04 02/15/20 22 02/14/2022 urina lysis , dipst ick Bilirubin Negati ve Not Available [address] [place], [address], 02/14/2022 15:28:04 02/15/20 22 02/14/2022 urina lysis , dipst ick Glucose Negati ve Not Available [address] [place], [address], 02/14/2022 15:28:04 02/15/20 22 02/14/2022 urina lysis , dipst ick Appearance Slight ly Cloudy Not Available [address] [place], [address], 02/14/2022 15:28:04 02/15/20 22 02/14/2022 urina lysis , dipst ick Color Dark Yellow Not Available [address] [place], [address], 02/14/2022 15:28:04 02/16/20 22 02/20/2022 URINE CULTU RE, ROUTI NE urine culture, routine Final report abnormal Not Available [facility] ([facility]) [address], [place], [address], 02/20/2022 18:35:56 02/16/20 22 02/20/2022 URINE CULTU [...] ng units per mL Not Available [facility] ([facility]) [address] [facility], [place], [address], 02/20/2022 18:35:56 02/16/20 22 02/20/2022 URINE CULTU [...] thopr im/Márquez lfa S<=20 Not Available [facility] ([facility]) [address] [facility], [place], [address], 02/20/2022 18:35:56 Result Notes None recorded. Problems Name Problem SNOMED Code Status Onset Date Resolution Date Notes Provider Name and Address Organization Details Recorded Time Multiple lacerations 731035400 Completed 201606/23/2019 Kristine Núñez RN [address], [place], [address], [facility] 9 15:13:50 Herpes zoster 4548399 Active 2018 Kristine perdue [facility] 9 14:44:12 Traumatic injury 577385069 Active 2018 Kristine Núñez RN [address], [place], [address], [facility] 9 15:13:56 Low back pain 901051417 Active 2018 AURELIO Rubio [facility] 9 13:05:22 Problem Notes None recorded. Procedures Surgical History Date Name Laterality Status Provider Name and Address Organization Details Recorded Time 09/30/19 Diastolic B/P 80-89 mm Hg completed [facility] 09/30/2019 09:57:59 09/30/19 Systolic B/P 130-139 mm Hg completed [facility] 09/30/2019 09:57:57 06/08/20 19 Medication Reconcilliation completed Dana Gary [facility] 06/08/2019 14:36:56 06/02/20 19 Medication Reconcilliation completed Kristine Walters [facility] 06/02/2019 14:36:37 Hernia Repair completed Dana Gary [facility] 12/28/2016 15:43:32 Imaging Results None recorded. Procedure [...] Status: Prescrib ed on: 09/06/20 2:31PM;U ser: [email or web address];Est. Completi on: 09/16/19 16;Pharm [email or web address] ied: [...] Completi on: 07/25/20 14;Indic ation: Cough - ([phone]);Phar [email or web address] fied: 07/15/20 14 3:13PM Not [...] weight Body temperature Heart rate Oxygen saturation Respiratory rate Pain severity - 0-10 verbal numeric rating [Score] - Reported Systolic And Diastolic Provider Name and Address Organization Details Last Updated DateTime 0 172.72 cm 42.4 kg/m2 180145. 27 g 98.3 [degF] 68 /min 97 % 20 /min 0 130/80 mm[Hg] [facility] 0 09:57:25 Date Recorded Body height Body mass index (BMI) Body weight Heart rate Oxygen saturation Respiratory rate Pain severity - 0-10 verbal numeric rating [Score] - Reported Systolic And Diastolic Provider Name and Address Organization Details Last Updated DateTime 4 172.72 cm 43.8 kg/m2 084253. 6 g 88 /min 97 % 18 /min 4 134/80 mm[Hg] Padmini Shelton [place] - [facility] 4 15:50:56 Date Recorded Body weight Heart rate Oxygen saturation Respiratory rate Systolic And Diastolic Provider Name and Address Organization Details Last Updated DateTime 2 693811. 2 g 83 /min 98 % 18 /min 140/90 mm[Hg] Kristine Luis [place] - [facility] 2 15:26:50 Date Recorded Body height Body mass index (BMI) Body weight Heart rate Oxygen saturation Respiratory rate Pain severity - 0-10 verbal numeric rating [Score] - Reported Systolic And Diastolic Provider Name and Address Organization Details Last Updated DateTime 4 172.72 cm 43.8 kg/m2 543246. 6 g 72 /min 97 % 18 /min 0 124/78 mm[Hg] Padmini Shelton [place] - [facility] 4 14:57:41 Date Recorded Body height Body mass index (BMI) Body weight Heart rate Oxygen saturation Respiratory rate Systolic And Diastolic Provider Name and Address Organization Details Last Updated DateTime 9 172.72 cm 41.2 kg/m2 434683. 53 g 66 /min 95 % 18 /min 136/88 mm[Hg] Kristine Walters [place] - [facility] 9 13:08:33 Social History Question Answer Notes LastModified by Organizat ion Details LastModified Time Tobacco Smoking Status Never Smoker Dana [place]due, [place] - [facility] 12/28/2016 15:43:40 Do You Have An Advance Directive? No Information not available 12/16/2023 Are You Blind Or Do You Have Difficulty Seeing? No Information not available 09/30/2019 What Is Your Level Of Caffeine Consumption? Occasional [email or web address] Information not available 09/30/2019 How Much Tobacco Do You Chew? None [email or web address] Information not available 09/30/2019 Are You Deaf Or Do You Have Serious Difficulty Hearing? No [email or web address] Information not available 09/30/2019 What Type Of Diet Are You Following? REGULAR [email or web address] Information not available 09/30/2019 Which Illicit Or Recreational Drugs Have You Used? None [email or web address] Information not available 09/30/2019 How Many Days Of Moderate To Strenuous Exercise, Like A Brisk Walk, Did You Do In The Last 7 Days? 1 Information not available 09/30/2019 On Those Days That You Engage In Moderate To Strenuous Exercise, How Many Minutes, On Average, Do You Exercise? 1 [email or web address] Information not available 09/30/2019 Have There Been Any Changes To Your Family Or Social Situation? No Information no t available 12/16/2023 How Hard Is It For You To Pay For The Very Basics Like Food, Housing, Medical Care, And Heating? [id number] [email or web address] Information not available 09/30/2019 What Is The Fluoride Status Of Your Home? Fluoridated Information not available 12/16/2023 Hard Of Hearing Or Deaf In One Or Both Ears? No [email or web address] Information not available 09/30/2019 Legally Blind In One Or Both Eyes? No [email or web address] Information no t available 09/30/2019 Live Alone Or With Others? With Others Information not available 06/02/2019 Do You Have A Medical Power Of Publicity Agent? No Information not available 12/16/2023 What Was The Date Of Your Most Recent Tobacco Screening? 12/16/2023 Information not available 12/16/2023 What Is Your Relationship Status? Information not available 12/16/2023 Seat Belts Used Routinely Yes [email or web address] Information not available 09/30/2019 Are You Sexually Active? Yes Information not available 12/16/2023 Smoke Alarm In Home Yes [email or web address] Information not available 09/30/2019 Do You Have Smoke And Carbon Monoxide Detectors In Your Home? Yes Information not available 12/16/2023 Are You Passively Exposed To Smoke? No [email or web address] Information no t available 09/30/2019 General Stress Level Low [email or web address] Information not available 09/30/2019 Do You Use Sunscreen Routinely? Yes Information not available 09/30/2019 Has Tobacco Cessation Counseling Been Provided? No Information not available 12/16/2023 On What Date Was Tobacco Cessation Counseling Provided? 02/21/2024 Information not available 02/21/2024 Do You Have Difficulty Walking Or Climbing Stairs? No [email or web address] Information not available 09/30/2019 Sex: Male Functional Status Question Answer Note LastModified by Organizat ion Details LastModified Time Do you use any illicit or recreational drugs? No Information not available 12/16/2023 Do you or have you ever used any other forms of tobacco or nicotine? No Information not available 12/16/2023 What is your level of alcohol consumption? None [email or web address] Information not available 09/30/2019 Do you or have you ever used smokeless tobacco? Never used smokeless tobacco [email or web address] Information not available 09/30/2019 Are you currently employed? No Information not available 12/16/2023 Do you have transportation difficulties? No Information not available 12/16/2023 Are you able to walk independently without assistance or assistive devices? YESWOREST [email or web address] Information not available 09/30/2019 Do you have difficulty doing errands alone? No [email or web address] Information not available 09/30/2019 Are you able to care for yourself independently? Yes Information not available 06/02/2019 Do you have difficulty dressing, bathing, grooming, or toileting? No [email or web address] Information not available 09/30/2019 Do you or have you ever used e-cigarettes or vape? Never used electronic cigarettes [email or web address] Information not available 09/30/2019 What is your exercise level? None Information not available 09/30/2019 Mental Status Question Answer Note LastModified by Organizat ion Details LastModified Time Do you feel stressed (tense, restless, nervous, or anxious, or unable to sleep at night)? [id number] Information not available 09/30/2019 Do you have difficulty concentrating, remembering or making decisions? No [email or web address] Information no t available 09/30/2019 Family History Relationship Description Onset Age of this Age Resolved Age Notes LastModified by Organization Details LastModified Time Maternal Grandmother Neoplasm of lung [email or web address] Not available 12/28 15:43:04 Paternal Aunt Diabetes mellitus [email or web address] Not available 12/28 15:43:19 Medical History Condition Response Pancreatitis N Coronary Artery Disease N Gout N Other N Atrial Fibrillation N congenital heart disease N Kidney Stones N Blood Diseases N Hyperthyroidism N Blood Transfusion N Rheumatoid arthritis N Erectile Dysfunction N amputation N Colonoscopy N Skin Lesions N Depression N COPD N Pneumonia N Incontinence N Murmur N Edema N Alzheimer's Disease N Migraine Headaches N Tobacco Abuse N Anxiety Disorder N Hemorrhoids N Muscle, Joint, or Bone Problems N Obesity N Vision or Eye Problems N Arthritis N Restless Leg Syndrome N Polyps N Infertility N Mental Disorder N Carpal Tunnel N Acid Reflux (GERD) N Cancer N Varicosities N Stroke N Tendonitis N Crohn's Disease N Hypercholesterolemia N Skin Cancer N Headaches N Fibromyalgia N Anal Fissure N Irritable Bowel Syndrome [...] colitis N Cerebrovascular Disease N Depression N Guillain-Shock N Sleep Apnea N Aneurysm N Bronchitis N Heart Disease N Suicidal Ideation N Pre-Eclampsia N Hypertension N Osteoporosis N Immunizations Vaccine Type Date Status Note Provider Nam e and Address Organization Details Recorded Time Tdap 12/14/2016 completed Padmini Shelton AURELIO [place] - [facility] 12/16/2023 15:50:30 Past Encounters Encounter ID Performer Location Encounter Start Date Encounter Closed Date Diagnosis/Indication Diagnosis SNOMED-CT Code Diagnosis ICD10 Code Diagnosis IMO Codes Diagnosis Note [id number] Flash Tomas MD [address] [place] [address] 12/28/2016 15:04:14 12/28/2016 16:08:42 Multiple lacerations 986792427 T14.8 [id number] Hellen Kilgore [address] [place] [address] 06/02/2019 14:31:56 06/02/2019 15:09:14 Body mass index 40+ - severely obese 321801063 Z68.41 Herpes zoster 4740233 B0 2.9 [facility] 571970195 Z76.89 [id number] Hellen Kilgore [employer] [address] [place] [address] 06/08/2019 13:56:00 06/08/2019 15:14:27 Traumatic injury 556459578 T14.90XD Fracture of coccyx 29373 1005 S32.2XXS Spasm of back muscles 20 8633450 M62.109 [id number] Hellen Kilgore [employer] [address] [place] [place] [address] 06/23/2019 14:28:27 06/23/2019 15:46:46 Low back pain 157828977 M54.5 Traumatic injury 0338861 04 T14.90XD [id number] Hellen Kilgore [address] [place] [address] 07/07/2019 13:00:12 07/07/2019 13:24:48 Traumatic injury 956065961 T14.90XD Low back pain 114546164 M54.5 Fracture of coccyx 98570 1005 S32.2XXS [id number] Patti [place], [address] [place] [address] 09/30/2019 09:46:42 09/30/2019 10:12:54 Upper respiratory infection 41959242 J06.9 [id number] Patti Sousa [address] [place] [address] 02/14/2022 15:10:03 02/14/2022 15:33:01 Urinary tract infectious disease 96915792 N39.0 Microscopic hematuria 19 5299620 R31.29 [id number] Alber Glasgow MD [address] [place] [address] 12/16/2023 15:27:57 12/16/2023 16:13:49 Nasal congestion 59197283 R09.81 [id number] Alber Glasgow MD [address] [place] [address] 02/21/2024 14:34:19 02/21/2024 15:39:41 Nasal congestion 32692522 R09.81 Body mass index 40+ - severely obese 267237438 Z68.41 Morbid obesity 150233132 E66.01 Health Concerns Section Related Observation LastModified by Organization Detai ls LastModified Time None Recorded Concern Status LastModified by Organization Details LastModified Time None Recorded Advance Directives Directive N: Payers Insurance Date Sequence Insurance Name Policy Number Policy Bustamante Covered Member ID Bustamante Member ID Guarantor Name 06/23/2019 1 *SELF PAY* Da cheri Craven 12/27/2024 [place] [facility] WRAP BILLING (MEDICAID) Jeremy Craven [id number] Jeremy Craven 02/21/2024 1 [employer] [place] ([place]ICA[place] HMO[place] Jeremy Craven [id number] Jeremy Craven 12/27/2024 1 [employer] [place]) Jeremy Craven [id number] Jeremy Craven Notes Date Note Type Note [...] resolved. no issues with ambulation. Hellen perdue, [facility] 07/07/2019 13:22:31 09/30/2019 text/html Upper Respirator y SymptomsReported by PatientUpper Respiratory SymptomsFor quality, patient reportsproductive coughandcongested. For associated symptoms, patient reportsyellow-green, thick sputum,sweats, andfever. For location, patient reportsheadandchest. For severity, patient reportsno pain. For duration, patient reportscannot identify. For onset/timing, patient reportsgradual. For context, patient reportsno sick contacts,no foreign travel, andnon-smoker.ROS as noted in the HPI Patti perdue, [facility] 09/30/2019 10:12:07 02/14/2022 text/html ROS as noted in the HPI pt c/o flank pain on left side, severe burning and pain when urinatingno fever no chills no N,V or D Patti perdue, [facility] 02/14/2022 16:41:23 12/16/2023 text/html ROS as [...] denies any F/C, N/V/D. Alber Glasgow MD [facility] [address], [place], [address], [facility] - [facility] 12/16/2023 17:26:44 02/21/2024 text/html ROS [...] throat. Alber Glasgow MD [address], [place], [address], [place] - [facility] 02/21/2024 17:19:05
[2025-08-10 07:32] LABS: Hepatitis B Surface Antigen Negative (Negative)
== END 2025-08-06 23:59 | disposition home or self-care (01) ==
LOC: LAB.DROPOF 08-09 10:48
PROVIDERS: PCP Nurse Practitioner Family; Visit Provider Nurse Practitioner Family
DX: E78.00 Pure hypercholesterolemia, unspecified (principal); I10 Essential (primary) hypertension; Z11.59 Encounter for screening for other viral diseases
CPT/HCPCS: 80053; 80061; 84443; 85025; 86803; 87340; 87389